=== PATIENT | female | born 1990 | race Two or more races ===

== ENCOUNTER 2017-01-28 21:17 | Emergency (ER) | payer MEDICAID, OTHER, SELFPAY ==
[~2017-01-28] VITALS: Ht 165.1 cm; Wt 96.3 kg
[2017-01-28 21:18] VITALS: BP 121/76
== END 2017-01-28 21:49 | disposition home or self-care (01) ==
LOC: ED 21:43
DX: S90.112A Contusion of left great toe without damage to nail, initial encounter (principal); X58.XXXA Exposure to other specified factors, initial encounter; Y93.89 Activity, other specified; Y99.8 Other external cause status; Y92.89 Other specified places as the place of occurrence of the external cause
CPT/HCPCS: 99281